=== PATIENT | female | born 1990 | race Caucasian/White ===

== ENCOUNTER 2016-10-01 01:22 | Inpatient (IN) ==
--- NOTE | 2016-09-30 22:34 | OB/GYN History & Physical ---
Date of Encounter: 09/30/16 Time of Encounter: 22:31 Assessment and Plan (1) 39 weeks gestation of Current visit: Yes Status: Acute Cervix dilated to 6 cm, pt breathing though contractions and requesting epidural. Obtain records and from [facility] GBS unknown at this time. Pt states negative, denies history of GBS infection ( maternal or ). Will not treat at this time. Does not meet CDC antibiotic therapy criteria Nuabin and Epidural as desired CNM to manage care Dr. Marie aware of admission. Anticipate spontaneous vaginal delivery (2) Active labor at term Current visit: Yes Status: Acute History of Present Illness Chief complaint: contractions HPI: Ms. Sheets is a 25 year old female at 39 weeks and 3 days here today for contractions. Her contractions started at 3 AM this morning. They have grown stronger in intensity and closer together in time. She denies vaginal leaking of fluid, vaginal bleeding, headache, blurry vision, dysuria. She received her care at [facility]. Labs: O+ (from previous [facility] labs 2014), awaiting from provider. Past Med Surg Social Fam HX - Past Medical History Medical history: no medical history Psychiatric history: no psych history - Past Surgical History Surgical History: no surgical history - Social History Smoking Status: Current every day smoker Packs per day: 10 Alcohol use: none Drug use: none - Family History Mother Adopted: No Family Member Ethnicity: Non- Living Status: Still Living Hx Family Cardiac Disorders: No Hx Family Respiratory Disorders: No Hx Family Cancer: No Hx Family GI Disorders: No Hx Family Genitourinary Disorders: No Hx Family Endocrine Disorder: No Hx Family Musculoskeletal Disorders: No Hx Family Neuromuscular Disorders: No Hx Family Neurologic Disorders: No Hx Family HEENT Disorders: No Hx Family Autoimmune Disorders: No Hx Family Reproductive Disorders: No Hx Family Psychosocial Disorders: No Hx Family Medical Disorders: No Obstetrical History - Pregnancies : 2 Para: 1 Term: 1 : 0 Ab's: 0 Livin Review of System OB - Constitutional Constitutional ROS IM: as per HPI Exam - Constitutional Constitutional: well developed, well nourished, no acute distress - HEENT HEENT: Mucus Membranes Moist - Neck Neck exam: supple - Lungs Respiratory exam: CTAB - Cardiovascular Cardiovascular exam: RRR, +S1, +S2 - Abdomen Abdomen: Present: bowel sounds normal, gravid, non tender - Extremities Extremities exam: normal inspection, warm - Cervix Dilation: 6 Results Result Diagrams: 09/30/16 22:20 All other labs normal. - VTE Reasons for not Prescribing Prophylaxis: Medical contraindication
[2016-09-30 22:37] LABS: Basophils % 0.1 %; Eosinophils # 0.1 K/mcL (0.0-0.6); Eosinophils % 0.7 %; Hematocrit 35.6 % (35.3-44.9); Hemoglobin 11.8 g/dL (11.5-15.4); Immature Granulocytes % 0.4 % (0-4); Lymphocytes # 1.7 K/mcL (0.6-4.6); Lymphocytes % 13.9 %; Mean Corpuscular HGB Conc 33.1 g/dL (31.6-35.5); Mean Corpuscular Hemoglobin 29.2 pg (28.0-33.3); Mean Corpuscular Volume 88.1 fL (83.0-100.0); Mean Platelet Volume 11.4 fL (9.4-12.4); Monocytes # 0.9 K/mcL (0.0-1.3); Monocytes % 7.4 %; Neutrophils # 9.4 K/mcL (1.6-8.9); Platelet Count 249 K/mcL (140-400); Red Blood Count 4.04 M/mcL (3.82-4.97); Red Cell Distribution Width 13.8 % (11.5-14.5); Segmented Neutrophils % 77.5 %
--- NOTE | 2016-09-30 22:47 | Anesthesia Evaluation PreOp ---
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 Other Medical History: Denies Any Significant HX Anesthesia History: No Prior Anesthetic Complications (ALBERTO x 1: no complications ; denies family h/o anesthesia complications), Past Anesthesia : Yes Test: Positive Alcohol Use: none Drug use: none Medications and Allergies No Known Home Drugs 09/30/16 [History] Allergies No Known Allergies Allergy (Verified 09/30/16 22:39) Anesthesia Results - Labs 09/30/16 22:20 Anesthesia Exam O2 Sat Height 1.68 m Weight 95.254 kg 135/80, HR90, RR16 O2 Sat Height 1.68 m Weight 95.254 kg NPO (# of Hours): solids > 1 hr Pain Scale: 8 Pain Scale Used: Numeric (1 - 10) - HEENT Pupil (Motor): Pupils equal Mallampati: II Teeth: Normal Oral Opening: Greater than 3 - GLASS CUTTING MACHINE FEEDER LOC: Oriented GLASS CUTTING MACHINE FEEDER Motor: Normal RUE, Normal LUE, Normal RLE, Normal LLE, Normal Face GLASS CUTTING MACHINE FEEDER Sensory: Normal: RUE, LUE, RLE, LLE, Face - Cardiac Rhythm: Regular Murmur: None - Pulmonary Breath Sounds: bilateral Clear Respiratory Effort: Symmetrical Anesthesia Assess/Plan ASA Score: 2 Modified [place] Scale for Level of Consciousness: Anixous, agitated or restless Anesthetic Plan: Regional Autologous Blood: No Monitoring Plan: Standard Monitors Recovery Plan: Other
--- NOTE | 2016-09-30 23:22 | Anesthesia Procedures ---
Date of Encounter: 09/30/16 Time of Encounter: 23:20 Procedures: Anesthesia - Epidural/Spinal Patient ID/Chart reviewed: Yes Patient examined: Yes OB Eval: Gestational age: 39 weeks 4 days OB Eval: : 2 OB Eval: Hx Para: 1 OB Eval: Dilated at (cm): 6 OB Eval: Contractions: Non-stressed pattern Consent Obtained: Yes Supplemental Oxygen: None/Room Air Site Prep: Aseptic Technique, Sterile prep and drape, Povidone-Iodine 1% Patient position: upright Local Anesthetic: Lidocaine 1% Amount of Local Anesthetic used: 3 Touhy Needle Gauge: 18 Touhy Needle Depth (cm): 5 Catheter Depth at Skin (cm): 10 (placed at 2306) Test Dose (1.5% Lido + Epi): Volume given (mls): 5 Test Dose Result: Negative Loading Dose: 0.25% Marcaine (mls): 5 Loading Dose: Fentanyl (mcg): 100 Loading Dose Administered: Thru Catheter Infusion Med: 0.125% Bupivacaine w/ 2 mcg/ml Fentanyl Infusion Rate (mls/hr): [address]: Tegaderm, Tape Interspace Used: L4-L5 Loss of Resistance (VAZQUEZ): Yes Blood: No CSF: No Paresthesia: No Procedure: successful on 1st attempt; patient tolerated well; VSS
--- NOTE | 2016-10-01 | OB Labor Progress Note ---
Date of Encounter: 09/30/16 Time of Encounter: 23:58 Labor Progress Note - Subjective Subjective: pt comfortable in bed with epidural at this time. - Cervix Cervix: 7/100/-1 - Heart Tones Heart Tones: 135/moderate/variables - [place]: toco needs adjusting - Interventions Interventions: AROM for clear fluid - Plan Plan: Continue routine care. Anticipate
[~2016-10-01 01:22] MED LIST: *HR* FentaNYL (PF) 100 MCG/2 ML VIAL EP ONE; *HR* FentaNYL (PF) 100 MCG/2 ML VIAL IVP PRN; *HR* FentaNYL (PF) 100 MCG/2 ML VIAL ONE; *HR* Nalbuphine 20 MG/ML AMPUL IVP PRN; Bupivacaine-MPF 0.25% 10 ML VIAL EP ONE; Bupivacaine-MPF 0.25% 10 ML VIAL ONE; Epidural Premix (fent/bupiv) 110 ML EP ONE; Epidural Premix (fent/bupiv) 110 ML EP SCH; Famotidine 20 MG/2 ML VIAL IVP PRN; Naloxone 0.4 MG/ML INJ IVP PRN; Oxytocin 20 units/ LR 1000 mL 20 UNIT/1,000 ML BAG IVC ONE; Ringers Solution, Lactated 1,000 ML IVC SCH; Ringers Solution, Lactated 1,000 ML ONE
--- NOTE | 2016-10-01 03:57 | OB/GYN Procedure Note ---
Delivery - Delivery Date: 10/01/16 Provider: Ely Vaughn (instrument technician ) Intrapartum events: none Delivery induction: none Delivery augmentation: rupture of membranes Delivery monitor: external FHT, external uterine, internal FHT Anesthesia: epidural Estimated Blood Loss: 50 - (s) A Infant Delivery Date: 10/01/16 Infant Delivery Time: 03:15 Presentation: vertex Position: OA Route of delivery: Gender: Female Viability: Viable Pounds: 6 Ounces: 13 Weight Gram: 3100 kg at 1 minute: 8 at 5 mins: 9 Shoulder Dystocia: not encountered Specimens collected: cord blood Placenta: spontaneous Cord: other (body x2) - Repair Episiotomy: none Laceration Description: None - Complications Delivery complications: none Delivery comments: Called for delivery, on maternal abdomen upon arrival to room, delivery by RNwho reported Body cord x2, Placenta delivered spontaneously, Perineum intact, EBL 50. - Disposition Mom disposition: stable in LDR [place] disposition: stable in LDR
[2016-10-01] MEDS ORDERED: Acetaminophen 325 MG TABLET PO PRN (06:00)
[2016-10-01] MEDS ORDERED: Benzocaine/Menthol 56 GM AEROSOL SPRAY TP PRN (06:00)
[2016-10-01] MEDS ORDERED: Ibuprofen 600 MG TABLET PO PRN (06:00)
[2016-10-01] MEDS ORDERED: Oxytocin 20 units/ LR 1000 mL 20 UNIT/1,000 ML BAG IVC SCH (06:00)
[2016-10-01] MEDS ORDERED: Lanolin 28 GM TUBE TP PRN (06:00)
[2016-10-01] MEDS: Prenatal Vit/FA 1 EACH TABLET PO SCH (09:15)
[2016-10-01] MEDS ORDERED: Lanolin 7 G OINT...G. TP PRN (21:58)
[2016-10-02 07:55] VITALS: BP 121/77
--- NOTE | 2016-10-02 08:43 | Discharge Summary ---
Date of Encounter: 10/02/16 Time of Encounter: 08:41 - Discharge Diagnosis (1) Vaginal delivery Priority: Primary Status: Acute Comments: Patient doing well day 1. Pain is well controlled Denies difficulty urinating and is passing flatus Lochia is light without clots Patient is Discharge home today (2) Breast feeding status of mother Priority: Primary Status: Acute Comments: Patient denies difficulty with Requests breastpump - Discharge Medications Prescriptions: Ibuprofen [Motrin] 600 mg PO Q6HR PRN #60 tablet PRN Reason: Cramping Breast Pump [BREAST PUMP] 1 each .ROUTE AD #1 each Home Medications: Benzocaine/Menthol [place] [Dermoplast [place]] 1 appl TP QID PRN #0 aerosol [Rx] Breast Pump [BREAST PUMP] 1 each .ROUTE AD #1 each 10/02/16 [Rx] Docusate [Colace] 100 mg PO BID capsule 10/02/16 [Rx] Ferrous Sulfate 325 mg PO DAILY tablet 10/02/16 [Rx] Ibuprofen [Motrin] 600 mg PO Q6HR PRN #60 tablet 10/02/16 [Rx] Lanolin [Lansinoh] 1 appl TP QID PRN #0 oint...g. 10/02/16 [Rx] Vit/FA 1 each PO DAILY tablet 10/02/16 [Rx] Allergies/Adverse Reactions: Allergies No Known Allergies Allergy (Verified 09/30/16 22:39) Data Procedures and tests throughout hospitalization: Laboratory Tests 09/30/16 22:20 WBC 12.1 H RBC 4.04 Hgb 11.8 Hct 35.6 MCV 88.1 MCH 29.2 MCHC 33.1 RDW 13.8 Plt Count 249 MPV 11.4 Immature Gran % 0.4 Seg Neutrophils % 77.5 Lymphocytes % 13.9 Monocytes % 7.4 Eosinophils % 0.7 Basophils % 0.1 Neutrophils # 9.4 H Lymphocytes # 1.7 Monocytes # 0.9 Eosinophils # 0.1 Basophils # 0.0 Date of admission: 10/01/16 01:22 Primary care physician: PCP NO Consults: 10/01/16 06:00 Consult to Dining Room Supervisor [CONS] Routine Comment: Vaginal delivery, consult needed Discharging clinician: Cheyanne Hogde Anticipated date of discharge: 10/02/16 - Patient Status Disposition: Home, Self-Care Condition: Good Overall status at discharge: patient is back to baseline - Discharge Instructions Follow Up With: NO,PCP [Primary Care Provider] - Jeferson Slaughter MD [Non-Partnered Physician] - - Diet and Activity Activity: increase activity as tolerated Diet: regular diet Hospital Course Reason for admission: active labor, IUP at term Delivery: Episiotomy: none Laceration: none Other procedures: none complications: none Discharge diagnosis: IUP at term delivered [place] baby: female Time Attestation: Total time spent providing and/or coordinating discharge services: Time Spent: Less than 30 minutes Exam - Constitutional Vitals: Temp Pulse Resp BP Pulse Ox 97.5 F L 59 16 121/77 97 10/02/16 07:30 10/02/16 07:30 10/02/16 07:30 10/02/16 07:30 10/01/16 20:00 General appearance IM: cooperative, A&O X 3, pleasant - Respiratory Respiratory exam: Present: CTAB - Cardiovascular Cardiovascular exam IM: Present: RRR, +S1, +S2 - GI/Abdominal GI/Abdominal exam IM: normal bowel sounds, soft - Rectal Rectal exam: deferred - Uterine Tone: Firm Uterus Position: At Umbilicus, Midline - Extremities Exam Extremities exam IM: Present: normal capillary refill, normal inspection, radial pulses palpable and symetrical - Neurological Exam Neurological exam: oriented X3
[2016-10-02] MEDS: Prenatal Vit/FA 1 EACH TABLET PO SCH (09:54)
== END 2016-10-02 11:32 | disposition home or self-care (01) | DRG 560 ==
LOC: 1NENULAB → 1NENUOBS 05:57
PROVIDERS: ADMIT Obstetrics & Gynecology; ATTEND Obstetrics & Gynecology

== ENCOUNTER 2018-01-05 13:07 | Inpatient (IN) ==
[2018-01-05] MEDS ORDERED: *HR* Promethazine 25 MG/ML VIAL IVP PRN (13:34)
[2018-01-05] MEDS ORDERED: *HR* Labetalol 20 MG/4 ML SYRINGE IVP PRN (13:34)
[2018-01-05] MEDS ORDERED: Acetaminophen IV 1,000 MG/100 ML INFUS..BTL IVPB ONE (13:34)
[2018-01-05] MEDS ORDERED: *HR* HYDROmorphone (PF) 1 MG/ML SYRINGE IVP PRN ×2 (13:34→17:17)
--- NOTE | 2018-01-05 13:54 | Anesthesia Evaluation PreOp ---
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 10/02/16 [Rx] Vit/FA 1 each PO DAILY tablet 10/02/16 [Rx] 3 Allergy/AdvReac Type Severity Reaction Status Date / Time No Known Allergies Allergy Verified 09/30/16 22:39 Anesthesia Exam - HEENT Pupil (Motor): Pupils equal Mallampati: II Teeth: Normal Oral Opening: Greater than 3 - LONG CHAIN DYEING MACHINE OPERATOR LOC: Oriented LONG CHAIN DYEING MACHINE OPERATOR Motor: Normal RUE, Normal LUE, Normal RLE, Normal LLE, Normal Face LONG CHAIN DYEING MACHINE OPERATOR Sensory: Normal: RUE, LUE, RLE, LLE, Face - Cardiac Rhythm: Regular Murmur: None - Pulmonary Breath Sounds: bilateral Clear Respiratory Effort: Symmetrical Anesthesia Assess/Plan ASA Score: 2 Modified [place] Scale for Level of Consciousness: Cooperative, oriented, and tranquil Anesthetic Plan: General, Regional Monitoring Plan: Standard Monitors Recovery Plan: PACU
[2018-01-05] MEDS ORDERED: Ringers Solution, Lactated 1,000 ML IVC ONE (14:01)
[2018-01-05] MEDS ORDERED: Metoclopramide 10 MG/2 ML VIAL IVP ONE (14:01)
[2018-01-05] MEDS ORDERED: CeFAZolin Premix DUPLEX 2,000 MG/50 ML BAG IVPB ONE (14:01)
[2018-01-05] MEDS ORDERED: Oxytocin 20 units/ LR 1000 mL 20 UNIT/1,000 ML BAG IVC ONE (14:01)
[2018-01-05] MEDS ORDERED: Famotidine 20 MG/2 ML VIAL IVP ONE (14:01)
[2018-01-05] MEDS ORDERED: EPHEDrine 50 MG/ML VIAL ONE (14:04)
[2018-01-05] MEDS ORDERED: *HR* Phenylephrine 10 MG/ML VIAL ONE (14:04)
[2018-01-05] MEDS ORDERED: *HR* Oxytocin 10 UNIT/ML VIAL IM ONE (14:04)
[2018-01-05] MEDS ORDERED: *HR* Morphine Sulfate/PF 10 MG/10 ML AMPUL ONE (14:04)
[2018-01-05] MEDS ORDERED: *HR* FentaNYL (PF) 100 MCG/2 ML VIAL ONE (14:04)
[2018-01-05] MEDS ORDERED: Ringers Solution, Lactated 1,000 ML ONE (14:08)
[2018-01-05] MEDS ORDERED: Ringers Solution, Lactated 1,000 ML IVC SCH (14:15)
[2018-01-05] MEDS ORDERED: Oxytocin 20 units/ LR 1000 mL 20 UNIT/1,000 ML BAG IVC SCH (14:15)
[2018-01-05 14:21] LABS: Basophils % 0.2 %; Eosinophils # 0.1 K/mcL (0.0-0.6); Eosinophils % 0.7 %; Hematocrit 32.5 % (35.3-44.9); Hemoglobin 10.9 g/dL (11.5-15.4); Immature Granulocytes % 0.6 % (0-4); Lymphocytes # 1.6 K/mcL (0.6-4.6); Lymphocytes % 12.6 %; Mean Corpuscular HGB Conc 33.5 g/dL (31.6-35.5); Mean Corpuscular Hemoglobin 28.7 pg (28.0-33.3); Mean Corpuscular Volume 85.5 fL (83.0-100.0); Mean Platelet Volume 10.6 fL (9.4-12.4); Monocytes # 0.8 K/mcL (0.0-1.3); Monocytes % 6.3 %; Neutrophils # 9.8 K/mcL (1.6-8.9); Platelet Count 288 K/mcL (140-400); Red Cell Distribution Width 13.6 % (11.5-14.5); Segmented Neutrophils % 79.6 %
[2018-01-05 14:41] LABS: Amphetamine Screen,Urine Negative ng/mL (Cutoff=1000); Barbiturate Screen,Urine Negative ng/mL (Cutoff=200); Benzodiazepines Screen,Urine Negative ng/mL (Cutoff=200); Cannabinoid Screen,Urine Negative ng/mL (Cutoff = 50); Cocaine Screen,Urine Negative ng/mL (Cutoff= 300); Opiate Screen,Urine Negative ng/mL (Cutoff=300); Phencyclidine Screen,Urine Negative ng/mL (Cutoff=25)
--- NOTE | 2018-01-05 15:05 | OB/GYN History & Physical ---
Date of Encounter: 01/05/18 Time of Encounter: 15:03 Assessment and Plan (1) Footling breech presentation Current visit: Yes Status: Acute Qualifiers: Qualified Code(s): O32.8XX0 - Maternal care for other malpresentation of fetus, not applicable or unspecified (2) 39 weeks gestation of Current visit: No Status: Acute History of Present Illness HPI: Ms. Sheets is a 27 year old female who presents today for a scheduled section at 39 weeks and 3 days. This patient has a history 2 previous vaginal deliveries. This baby is currently in footling breech presentation. Patient has elected to proceed with a primary section. Risks of surgery were discussed. She understood this completely. She is doing well. She is having no other complaints of any kind. She has no drug allergies. Current medications include vitamins. She has no chronic medical conditions. Surgical history is negative. She has no history of abnormal passers, STDs or pelvic infections. Socially she denies tobacco, alcohol, illicit drug use. Obstetric history significant for 2 term vaginal deliveries. Family history is not territory. Past Med Surg Social Fam HX - Past Medical History Medical history: no medical history Psychiatric history: no psych history - Past Surgical History Surgical History: no surgical history - Social History Smoking Status: Current every day smoker Packs per day: 5-6 cigarretes daily Alcohol use: none Drug use: none - Family History Mother Adopted: No Family Member Ethnicity: Non- Living Status: Still Living Hx Family Cardiac Disorders: No Hx Family Respiratory Disorders: No Hx Family Cancer: No Hx Family GI Disorders: No Hx Family Genitourinary Disorders: No Hx Family Endocrine Disorder: No Hx Family Musculoskeletal Disorders: No Hx Family Neuromuscular Disorders: No Hx Family Neurologic Disorders: No Hx Family HEENT Disorders: No Hx Family Autoimmune Disorders: No Hx Family Reproductive Disorders: No Hx Family Psychosocial Disorders: No Hx Family Medical Disorders: No Obstetrical History - Pregnancies : 3 Para: 2 Livin Medications and Allergies Benzocaine/Menthol [place] [Dermoplast [place]] 1 appl TP QID PRN #0 aerosol [Rx] Breast Pump [BREAST PUMP] 1 each .ROUTE AD #1 each 10/02/16 [Rx] Docusate [Colace] 100 mg PO BID capsule 10/02/16 [Rx] Ferrous Sulfate 325 mg PO DAILY tablet 10/02/16 [Rx] Ibuprofen [Motrin] 600 mg PO Q6HR PRN #60 tablet 10/02/16 [Rx] Lanolin [Lansinoh] 1 appl TP QID PRN #0 oint...g. 10/02/16 [Rx] Vit/FA 1 each PO DAILY tablet 10/02/16 [Rx] 3 Allergy/AdvReac Type Severity Reaction Status Date / Time No Known Allergies Allergy Verified 09/30/16 22:39 Exam - Constitutional Constitutional: well developed, well nourished, no acute distress, average body habitus - HEENT HEENT: PERRL - Neck Neck exam: full ROM - Lungs Respiratory exam: CTAB - Cardiovascular Cardiovascular exam: RRR - Abdomen Abdomen: Present: bowel sounds normal, gravid - Extremities Extremities exam: full ROM - Vagina Vagina: Present: normal moisture Results Result Diagrams: 01/05/18 14:00 Abnormal lab results WBC 12.3 K/mcL (4.3-11.1) H 01/05/18 14:00 RBC 3.80 M/mcL (3.82-4.97) L 01/05/18 14:00 Hgb 10.9 g/dL (11.5-15.4) L 01/05/18 14:00 Hct 32.5 % (35.3-44.9) L 01/05/18 14:00 Neutrophils # 9.8 K/mcL (1.6-8.9) H 01/05/18 14:00 All other labs normal.
[2018-01-05] MEDS ORDERED: Lidocaine -MPF 2% 5 ML VIAL ONE (15:14)
--- NOTE | 2018-01-05 16:10 | OB/GYN Procedure Note ---
Section - Date of procedure: 01/05/18 Preop diagnosis: breech Post-op diagnosis: same Procedure: primary low transverse Surgeon: Jeferson Allred Blood Loss: 400 Was there an assistant professor of radiology present: Yes Deputy Assessor: Cheyanne Velazco Home Worker: Sumanth Smiley Anesthesia Type: Spinal section complications: none Disposition: Post floor Specimens: Placenta - (s) Infant A Infant Delivery Date: 01/05/18 Infant Delivery Time: 15:45 Presentation: footling breech Route of delivery: breech extraction Gender: Male Viability: Viable Pounds: 7 Ounces: 6 Gram Weight: 3.35 kg at 1 minute: 8 at 5 minutes: 9 Specimens collected: cord blood Cord: nuchal cord - Narrative Narrative: Patient is a 27-year-old female who presented for primary section for footling breech presentation. Risks, occasions have been discussed. Patient understood completely we proceed. Procedure patient was taken to the operating room with IV in place she was given spinal anesthesia she was then prepped and draped in the usual sterile fashion. Once adequate analgesia was achieved a Pfannenstiel incision was made and carried sharply through the subcutaneous and fatty tissue until the fascial layers reached. The fascia was then nicked in the midline incised bilaterally with Ernst scissors. It was then dissected vertically for adequate exposure. Rectus abdominis musculature was midline. The peritoneum was sharply entered. A bladder blade was placed at the inferior margin of the incision. The bladder flap was then developed. The bladder blade was placed over the bladder flap and a low transverse incision was then made in the lower segment. Fluid was noted be clear. The infant was found to be in a footling breech presentation. Both feet were delivered initially. The rest of the was then delivered in the usual fashion without complications. cried immediately upon delivery. Cord was loosely around the infant's neck. This was released. The cried briskly. Cord was cut to cut and the infant was in past nurse in attendance. Cord blood was obtained. The placenta was delivered via uterine massage and lavage. The uterus is delivered. The incision was then closed the Vicryl suture running locking fashion. One [id number] was placed at the right angle for final hemostasis. The uterus was replaced the pelvic cavity. The pelvic cavity was then rinsed thoroughly with sterile water 2. All bleeders cauterized. The fascia was then closed the Vicryl suture running nonlocking fashion. The suprafascial region was rinsed thoroughly with sterile water 2 bleeders cauterized. The skin was closed jyotsna. Patient tolerated procedure well. Estimated blood loss was 400 mL. Patient delivered a male 7 lbs. 6 oz. with Apgars 81 minute and 9 at 5 minutes
[2018-01-05] MEDS ORDERED: Ondansetron 4 MG/2 ML VIAL ONE (16:51)
--- NOTE | 2018-01-05 17:16 | Anesthesia Evaluation Post Op ---
Date of Encounter: 01/05/18 Time of Encounter: 15:15 - Vital Signs Vital Signs: vss - Lungs Lungs: Clear Ascult./Percussion - Airway Airway: Non-obstructed - Mental Status Mental Status: Alert & Oriented, Answers Appropriately - Pain Pain Scale used: [place] (Faces) - Nausea Vomiting Nausea Vomiting: Present (recently given zofran.) - Hydration Hydration: Suresh catheter - Discharge PostOp Status: Transfer Patient to floor
[2018-01-05] MEDS ORDERED: Simethicone 80 MG TAB.CHEW PO PRN (18:04)
[2018-01-05] MEDS ORDERED: Ondansetron 4 MG/2 ML VIAL IVP PRN (18:04)
[2018-01-05] MEDS ORDERED: Metoclopramide 10 MG/2 ML VIAL IVP PRN (18:04)
[2018-01-05] MEDS: Ibuprofen 600 MG TABLET PO PRN (19:06)
[2018-01-05] MEDS: Oxytocin 20 units/ LR 1000 mL 20 UNIT/1,000 ML BAG IVC SCH (19:08)
[2018-01-05] MEDS ORDERED: Sennosides 8.6 MG TABLET PO PRN (21:00)
[2018-01-05] MEDS: *HR* OxyCODONE/APAP 5/325 TABLET PO PRN (22:39)
[2018-01-06] MEDS ORDERED: ceFAZolin 1,000 MG in Water for inj. (sterile) 20 ML 10 ML IVP SCH
[2018-01-06] MEDS ORDERED: ceFAZolin 1,000 MG in 0.9 % Sodium Chloride 100 ML IVP SCH
[2018-01-06] MEDS: Ibuprofen 600 MG TABLET PO PRN ×3 (01:19→17:31)
[2018-01-06] MEDS: Oxytocin 20 units/ LR 1000 mL 20 UNIT/1,000 ML BAG IVC SCH (02:30)
[2018-01-06] MEDS: *HR* OxyCODONE/APAP 5/325 TABLET PO PRN ×3 (06:54→20:24)
[2018-01-06 07:12] LABS: Basophils % 0.1 %; Eosinophils # 0.1 K/mcL (0.0-0.6); Hematocrit 27.5 % (35.3-44.9); Immature Granulocytes % 0.4 % (0-4); Lymphocytes # 1.6 K/mcL (0.6-4.6); Lymphocytes % 17.3 %; Mean Corpuscular HGB Conc 33.1 g/dL (31.6-35.5); Mean Corpuscular Hemoglobin 29.2 pg (28.0-33.3); Mean Corpuscular Volume 88.1 fL (83.0-100.0); Monocytes # 0.8 K/mcL (0.0-1.3); Monocytes % 8.7 %; Neutrophils # 6.5 K/mcL (1.6-8.9); Platelet Count 215 K/mcL (140-400); Red Blood Count 3.12 M/mcL (3.82-4.97); Red Cell Distribution Width 13.7 % (11.5-14.5); Segmented Neutrophils % 72.5 %
[2018-01-06 07:39] LABS: Hemoglobin 9.1 g/dL (11.5-15.4)
[2018-01-06] MEDS: Prenatal Vit/FA 1 EACH TABLET PO SCH (09:28)
[2018-01-06] MEDS: cephALEXin 500 MG CAPSULE PO SCH ×2 (09:28→20:24)
--- NOTE | 2018-01-06 10:14 | OB/GYN Progress Note ---
Date of Encounter: 01/06/18 Time of Encounter: 10:10 - Assessment and Plan (1) Status post Current Visit: Yes Status: Acute Patient improving as expected Continue current managment plan. Anticipate discharge tomorrow (2) Footling breech presentation Current Visit: Yes Status: Acute Qualifiers: Fetus number: single or unspecified fetus Qualified Code(s): O32.8XX0 - Maternal care for other malpresentation of fetus, not applicable or unspecified Subjective - Subjective Principal diagnosis: Section Interval history: Postop day 1 section. Patient has no complaints at this time. States that she has been tolerating oral intake well. Reports no nausea or vomiting. Reports that she had gas. No bowel movement. Patient states that she has been urinating well. Denies any fevers. Reports no drainage onto her bandage. Reports no headaches, lower extremity swelling, blurred vision. Does report concerns that the is not latching well. She has attempted to breast- feed 4 times. Does not know how much the is consuming. Patient reports being able to ambulate well today. Patient reports: appetite normal, voiding normally, pain well controlled, ambulating normally, no nauseated [place]: doing well, other (states she is cocnerned that child may not be latching well), bottle feeding Objective - Vital Signs Latest vital signs: Vital Signs Temp Pulse Resp BP Pulse Ox 01/06/18 08:14 16 01/06/18 07:45 98.0 F 60 14 92/52 96 01/06/18 02:00 98.2 F 70 16 104/63 97 01/05/18 21:30 97.9 F 60 16 100/53 97 01/05/18 20:30 97.9 F 79 16 99/54 99 01/05/18 19:30 98.1 F 75 16 110/70 97 01/05/18 19:00 98.1 F 62 14 112/65 99 01/05/18 18:30 97.9 F 60 14 93/53 98 01/05/18 18:29 97.9 F 60 14 93/53 98 Intake and Output 01/05/18 01/06/18 01/06/18 23:59 07:59 15:59 Intake Total 1650 / 1650 Output Total 550 / 550 Balance 1100 / 1100 Intake: IV Fluids 1050 / 1050 Pitocin 20 unit In 1,000 ml @ 950 / 950 125 mls/hr IVC .Q8H [facility] Rx#: [id number] Ancef 1,000 MG In 0.9 % Sodium 100 / 100 Chloride 100 ML @ 2000 mls/hr IVP Q8HR [facility] Rx#:[id number] Oral 600 / 600 Output: Urine 500 / 500 Catheter 50 / 50 Other: Meal Breakfast Percent of Meal Consumed 100% Weight 97.6 kg - Exam Lungs: bilateral: normal Chest: Normal S1, Normal S2 Extremities: Present: normal. Absent: edema Abdomen: Absent: tenderness Incision: Present: dressed Uterus: Present: firm. Absent: tenderness - Labs Labs: Laboratory Results - last 24 hr 01/05/18 01/05/18 01/06/18 14:00 14:00 06:45 WBC 12.3 H 9.0 RBC 3.80 L 3.12 L Hgb 10.9 L 9.1 L D Hct 32.5 L 27.5 L MCV 85.5 88.1 MCH 28.7 29.2 MCHC 33.5 33.1 RDW 13.6 13.7 Plt Count 288 215 MPV 10.6 11.0 Immature Gran % 0.6 0.4 Seg Neutrophils % 79.6 72.5 Lymphocytes % 12.6 17.3 Monocytes % 6.3 8.7 Eosinophils % 0.7 1.0 Basophils % 0.2 0.1 Neutrophils # 9.8 H 6.5 Lymphocytes # 1.6 1.6 Monocytes # 0.8 0.8 Eosinophils # 0.1 0.1 Basophils # 0.0 0.0 Urine Opiates Screen Negative Ur Barbiturates Screen Negative Ur Phencyclidine Scrn Negative Ur Amphetamines Screen Negative U Benzodiazepines Scrn Negative Urine Cocaine Screen Negative U Marijuana (THC) Screen Negative Ur Drug Screen Interp See Below
[2018-01-07] MEDS: Ibuprofen 600 MG TABLET PO PRN ×2 (01:09→09:01)
[2018-01-07] MEDS: *HR* OxyCODONE/APAP 5/325 TABLET PO PRN ×2 (05:56→12:01)
[2018-01-07 08:08] VITALS: BP 99/62
[2018-01-07] MEDS: cephALEXin 500 MG CAPSULE PO SCH (08:45)
[2018-01-07] MEDS: Prenatal Vit/FA 1 EACH TABLET PO SCH (08:46)
--- NOTE | 2018-01-07 11:02 | Discharge Summary ---
Date of Encounter: 01/07/18 Time of Encounter: 11:00 - Discharge Diagnosis (1) Status post Priority: Primary Status: Acute Comments: S/P Primary C/S 2. Pain is well controlled. Lochia is light and without clots VSS Tolerating regular diet; voiding without difficulty and passing flatus Breast feeding Discharge home (2) Breast feeding status of mother Priority: Secondary Status: Acute (3) Footling breech presentation Priority: Secondary Status: Acute Qualifiers: Fetus number: single or unspecified fetus Qualified Code(s): O32.8XX0 - Maternal care for other malpresentation of fetus, not applicable or unspecified - Discharge Medications Home Medications: Benzocaine/Menthol [place] [Dermoplast [place]] 1 appl TP QID PRN #0 aerosol [Rx] Breast Pump [BREAST PUMP] 1 each .ROUTE AD #1 each 10/02/16 [Rx] Docusate [Colace] 100 mg PO BID capsule 10/02/16 [Rx] Ferrous Sulfate 325 mg PO DAILY tablet 10/02/16 [Rx] Ibuprofen [Motrin] 600 mg PO Q6HR PRN #60 tablet 10/02/16 [Rx] Lanolin [Lansinoh] 1 appl TP QID PRN #0 oint...g. 10/02/16 [Rx] Vit/FA 1 each PO DAILY tablet 10/02/16 [Rx] Allergies/Adverse Reactions: 3 Allergy/AdvReac Type Severity Reaction Status Date / Time No Known Allergies Allergy Verified 09/30/16 22:39 Data Procedures and tests throughout hospitalization: Laboratory Tests 01/05/18 01/05/18 01/06/18 14:00 14:00 06:45 WBC 12.3 H 9.0 RBC 3.80 L 3.12 L Hgb 10.9 L 9.1 L D Hct 32.5 L 27.5 L MCV 85.5 88.1 MCH 28.7 29.2 MCHC 33.5 33.1 RDW 13.6 13.7 Plt Count 288 215 MPV 10.6 11.0 Immature Gran % 0.6 0.4 Seg Neutrophils % 79.6 72.5 Lymphocytes % 12.6 17.3 Monocytes % 6.3 8.7 Eosinophils % 0.7 1.0 Basophils % 0.2 0.1 Neutrophils # 9.8 H 6.5 Lymphocytes # 1.6 1.6 Monocytes # 0.8 0.8 Eosinophils # 0.1 0.1 Basophils # 0.0 0.0 Urine Opiates Screen Negative Ur Barbiturates Screen Negative Ur Phencyclidine Scrn Negative Ur Amphetamines Screen Negative U Benzodiazepines Scrn Negative Urine Cocaine Screen Negative U Marijuana (THC) Screen Negative Ur Drug Screen Interp See Below Date of admission: 01/05/18 13:07 Primary care physician: PCP NONE Discharging clinician: Cheyanne Hodge Anticipated date of discharge: 01/07/18 - Patient Status Disposition: Home, Self-Care Condition: Good Functional capacity at discharge: independent ambulation Overall status at discharge: patient is progressing back to baseline - Discharge Instructions Follow Up With: NONE,PCP [Primary Care Provider] - Jeferson Slaughter MD [Partnered Physician] - - Diet and Activity Activity: increase activity as tolerated Diet: regular diet Hospital Course Reason for admission: IUP at term Delivery: section Episiotomy: none Laceration: none Other procedures: none complications: none Discharge diagnosis: IUP at term delivered baby: male Time Attestation: Total time spent providing and/or coordinating discharge services: Time Spent: Less than 30 minutes - VTE Documentation of Mechanical Device: Intermittent pneumatic compression device Exam - Constitutional Vitals: Temp Pulse Resp BP Pulse Ox 98.1 F 86 12 99/62 98 01/07/18 07:55 01/07/18 07:55 01/07/18 07:55 01/07/18 07:55 01/07/18 07:55 General appearance IM: cooperative, A&O X 3, pleasant - Respiratory Respiratory exam: Present: CTAB - Cardiovascular Cardiovascular exam IM: Present: RRR, +S1, +S2 - GI/Abdominal GI/Abdominal exam IM: normal bowel sounds, soft Incision: normal, dry, intact - Rectal Rectal exam: deferred - Uterine Tone: Firm Uterus Position: At Umbilicus, Midline - Neurological Exam Neurological exam: alert, oriented X3
== END 2018-01-07 13:10 | disposition home or self-care (01) | DRG 540 ==
LOC: 1NENULAB 13:07 → 1NENUOBS 18:02
PROVIDERS: ADMIT Obstetrics & Gynecology; ATTEND Obstetrics & Gynecology